=== PATIENT | female | born 1985 | race Caucasian/White ===

== ENCOUNTER 2017-08-12 17:40 | Emergency (ER) | payer OTHER ==
[~2017-08-12] VITALS: Ht 170.2 cm; Wt 78.9 kg
[~2017-08-12 17:40] MED LIST: CLARITIN10 MG PO; ORSYTHIA 0.02 M1 TAB PO
--- NOTE | 2017-08-12 19:20 | ULTRASOUND REPORT ---
EXAMINATION: US TRIPLEX LOWER EXTREMITY, RIGHT CLINICAL INFORMATION: Right lower extremity pain and swelling. COMPARISON: None TECHNIQUE: Color-flow triplex imaging with spectral analysis and compression Doppler were performed on the lower extremity. FINDINGS: Respiratory variation, normal compression and augmented flow are noted throughout the lower extremity. The visualized common femoral vein, superficial femoral vein, profunda femoral vein, popliteal vein and midcalf peroneal and posterior tibial venous segments show no evidence of deep venous thrombosis. There is no Epps's cyst. IMPRESSION: Normal triplex scan without evidence of deep venous thrombosis involving the lower extremity.
--- NOTE | 2017-08-12 19:48 | ED UPPER/LOWER EXTREMITY COMPL ---
History of Present Illness General Chief Complaint: General Adult Stated Complaint: SENT BY PEDRO TO R/O DVT Source: patient Exam Limitations: no limitations Vital Signs & Intake/Output Vital Signs & Intake/Output Vital Signs Date Time Temp Pulse Resp B/P B/P Pulse O2 O2 Flow FiO2 Mean Ox Delivery Rate 08/12 1948 98.5 80 19 122/80 99 Room Air 08/12 1744 96.5 79 18 118/75 100 Room Air ED Intake and Output 08/13 0000 08/12 1200 Intake Total Output Total Balance Patient 174 lb Weight Weight Estimated Measurement Method Allergies Coded Allergies: MDX - [place] (ALMOND) (Intermediate, THROAT ITCHING 11/28/14) MDX - Fruits (Fruits) (Intermediate, THROAT ITCHING FROM `FRUIT PEELS' 07/18/15) MDX - Morphine (MORPHINE) (SYNCOPY 07/18/15) Reconcile Medications Ethinyl Estradiol/Levonorges (Orsythia 0.02 MG-0.1 MG) 1 TAB TAB 1 TAB PO DAILY AC (Reported) Loratadine (Claritin) 10 MG TAB 1 TAB PO DAILY PRN ALLERGIES (Reported) Triage Note: PT TO ER FOR R/O DVT, SENT IN BY DR. WISE SECONDARY TO RLE PAIN AND SWELLING. Triage Nurses Notes Reviewed? yes Onset: Abrupt Duration: day(s):, constant Timing: recent history Severity: moderate, severe Pain/Injury Location: Right: Leg. No Modifying Factors: none : No Patient currently breastfeeds: No HPI: 32-year-old female comes into emergency room for swelling to the right leg is been normal for the past few days getting progressively worse. Swelling is unilateral. Denies any other associated symptoms. Denies any fever chills vomiting. Denies any trauma to her leg. Denies any prior history of blood clots. (Reinier Person) Past History Travel History Traveled to [place] past 21 day No Medical History Any Pertinent Medical History? see below for history Neurological: NONE EENT: NONE Cardiovascular: NONE Respiratory: NONE Gastrointestinal: NONE Hepatic: NONE Renal: NONE Musculoskeletal: NONE Psychiatric: NONE Endocrine: NONE Cancer(s): MYXOLIPOSACROMA Surgical History Surgical History: N Psychosocial History What is your primary language Jordanian Tobacco Use: Never used Family History Hx Contributory? No (Reinier Person) Review of Systems Review of Systems Constitutional: Reports: no symptoms. EENTM: Reports: no symptoms. Respiratory: Reports: no symptoms. Cardiovascular: Reports: no symptoms. Gastrointestinal/Abdominal: Reports: no symptoms. Genitourinary: Reports: no symptoms. Musculoskeletal: Reports: see HPI. Skin: Reports: see HPI. Neurological/Psychological: Reports: no symptoms. Hematologic/Endocrine: Reports: no symptoms. Immunological: Reports: no symptoms. All Other Systems: Reviewed and Negative (Reinier Person) Physical Exam Physical Exam General Appearance: well developed/nourished, mild distress Head: atraumatic Eyes: Bilateral: normal appearance. Ears, Nose, Throat: normal ENT inspection, hearing grossly normal Neck: normal inspection Cardiovascular/Respiratory: no respiratory distress Back: normal inspection Leg Right: swelling to right leg, no pedal edema, results pedis pulse intact, no erythema, no warmth, Neurologic/Tendon: normal sensation, normal motor functions, normal tendon functions, responds to pain, no evidence tendon injury Skin: intact, normal color, warm/dry (Reinier Person) Progress Differential Diagnosis: compartment syndrome, contusion, DVT, fracture, sprain Plan of Care: 08/12/2017 11:01:10 PM No evidence of DVT. No Epps cyst seen. Patient has had no traumatic injury to indicate that there are be a fracture. Patient can follow-up with PCP. Patient likely has some venous stasis issues. Compression stockings. Elevation. No need for further evaluation at this time here in the emergency room and safe for discharge. Swelling is not bilateral. It is unilateral. No suspicion for any type of renal or liver issues. Diagnostic Imaging: Viewed by Me: Ultrasound. Discussed w/RAD: Ultrasound. Radiology Impression: PATIENT: KAILA BELL PRESENT AGE: 32 PATIENT ACCOUNT NO: [id number] : 84 LOCATION: [facility] ORDERING PHYSICIAN: Aurora GODINEZ SERVICE DATE: 08/12/17 EXAM TYPE: US - US-UNILATERAL VENOUS DOPPLER EXAMINATION: US TRIPLEX LOWER EXTREMITY, RIGHT CLINICAL INFORMATION: Right lower extremity pain and swelling. COMPARISON: None TECHNIQUE: Color-flow triplex imaging with spectral analysis and compression Doppler were performed on the lower extremity. FINDINGS: Respiratory variation, normal compression and augmented flow are noted throughout the lower extremity. The visualized common femoral vein, superficial femoral vein, profunda femoral vein, popliteal vein and midcalf peroneal and posterior tibial venous segments show no evidence of deep venous thrombosis. There is no Epps's cyst. IMPRESSION : Normal triplex scan without evidence of deep venous thrombosis involving the lower extremity. DICTATED BY: Liu Arana MD DATE/TIME DICTATED:08/12/171915 ROOF MECHANIC:SCARLET DATE/TIME TRANSCRIBED:08/12/171915 CONFIDENTIAL, DO NOT COPY WITHOUT APPROPRIATE AUTHORIZATION. <Electronically signed in Other Vendor System> SIGNED BY: Liu Arana MD 08/12/171919 (Reinier Person) Departure Departure Disposition: HOME OR SELF CARE Condition: Stable Clinical Impression Primary Impression: Swelling of right lower extremity Referrals: Pedro ZEPEDA,Emiliano Bailey (PCP/Family) John Lopez MD Additional Instructions: Pickup compression stocking. Elevate leg. Repeat ultrasound in 10 days if symptoms haven't resolved. Follow-up with PCP. If symptoms persist follow-up with vascular doctor. Return if any other concerns. Please go over all results of today's visit with your primary care doctor. Contact your primary care doctor to let them know you were here in the emergency room. There may be nonspecific findings which may not be related to your visit today here in the emergency room but may require further evaluation and chronic monitoring by your primary care doctor. If you had a laceration today the chance of foreign body always remains. You should follow-up with your primary care doctor for recheck in 3-5 days for a wound check. If you had an x-ray done there is a chance that a fracture could have been missed on initial read and you should follow-up with your primary care doctor for repeat x-rays if symptoms persist. If your blood pressure was elevated here in the emergency room please have rechecked by [facility] primary care doctor within the next 48. If you were prescribed a narcotic here in the emergency room or any type of controlled substances you're not allowed to drive while taking this medication or operate any type of heavy machinery. Narcotics can make you feel lightheaded dizziness nausea and can cause constipation. You may need to meat pickler a stool softener. Thank you for choosing [facility] emergency room. Please return to the emergency room immediately if you have any other concerns worsening of symptoms. Departure Forms: Customer Survey General Discharge Information (Reinier Person) PA/TRUCK DRIVER SALESPERSON Co-Sign Statement Statement: ED Attending supervision documentation- [] I saw and evaluated the patient. I have also reviewed all the pertinent lab results and diagnostic results. I agree with the findings and the plan of care as documented in the PA's/TRUCK DRIVER SALESPERSON's documentation. [X] I have reviewed the ED Record and agree with the PA's/TRUCK DRIVER SALESPERSON's documentation. [] Additions or exceptions (if any) to the PAs/TRUCK DRIVER SALESPERSON's note and plan are summarized below: [] (Aime ZEPEDA,Nikole)
[2017-08-12 19:49] VITALS: BP 122/80
== END 2017-08-12 19:52 ==
LOC: ERH 17:40
DX: M79.89 Other specified soft tissue disorders (principal)